=== PATIENT | male | born 1970 | race Caucasian/White ===

== ENCOUNTER 2020-06-10 08:03 | Outpatient (CLI) | payer BC ==
[2020-06-10] MEDS ORDERED: BARIUM SULFATE 135 ML SUSP.RECON (E-Z-HD) PO ONE (09:20)
== END 2020-06-10 20:39 | disposition home or self-care (01) ==
LOC: SRD 08:03
PROVIDERS: ATTEND Otolaryngology Plastic Surgery within the Head & Neck
DX: K21.9 Gastro-esophageal reflux disease without esophagitis (principal); R05 Cough
CPT/HCPCS: 74220-TC

== ENCOUNTER 2020-06-19 07:40 | Emergency (ER) | payer BC ==
[~2020-06-19] VITALS: Ht 175.3 cm; Wt 95.3 kg
[2020-06-19 07:43] VITALS: BP_SYST 148
[2020-06-19] MEDS ORDERED: MORPHINE 4 MG/ML INJ. SYRINGE IVP ONE (08:00)
[2020-06-19] MEDS ORDERED: NACL 0.9% 1,000 ML IV ONE (08:00)
[2020-06-19] MEDS ORDERED: ONDANSETRON HCL 4 MG/2 ML VIAL IVP ONE (08:00)
[2020-06-19 08:29] LABS: BASOPHILS % (AUTO) 0.6 % (0.0-2.0); EOSINOPHILS % (AUTO) 0.2 % (0.0-4.0); HEMOGLOBIN 15.4 g/dL (14.0-18.0); LYMPHOCYTES # (AUTO) 0.9 K/uL (1.0-5.5); LYMPHOCYTES % (AUTO) 11.6 % (20.5-51.5); MEAN CORPUSCULAR HEMOGLOBIN 29 pg (27-31); MEAN CORPUSCULAR HGB CONC 33 % (32-36); MEAN CORPUSCULAR VOLUME 86 fL (79.0-98.0); MONOCYTES # (AUTO) 0.5 K/uL (0.0-1.0); MONOCYTES % (AUTO) 5.9 % (1.7-9.3); NEUTROPHILS # (AUTO) 6.6 K/uL (1.8-7.7); NEUTROPHILS % (AUTO) 81.7 % (40.0-70.0); PLATELET COUNT (AUTO) 241 K/uL (130-430); RED BLOOD CELL COUNT(AUTO) 5.38 MIL/uL (4.2-6.2); RED CELL DISTRIBUTION WIDTH 13.8 % (9.0-15.0); WHITE BLOOD COUNT (AUTO) 8.1 K/uL (4.8-10.8)
[2020-06-19 08:45] LABS: CALCIUM 8.7 mg/dL (8.4-11.0); CREATININE 0.86 mg/dL (0.55-1.30); POTASSIUM 4.3 mmol/L (3.5-5.1)
[2020-06-19 08:47] LABS: BILIRUBIN,URINE 1+ (NEGATIVE); BLOOD, URINE NEGATIVE (NEGATIVE); CLARITY/URINE CLEAR (CLEAR); COLOR,URINE YELLOW (YELLOW); GLUCOSE,URINE TRACE (NEGATIVE); KETONES,URINE NEGATIVE (NEGATIVE); LEUKOCYTE ESTERASE ,URINE NEGATIVE (NEGATIVE); NITRITE, URINE NEGATIVE (NEGATIVE); PH,URINE 7.5 (5.0-8.0); PROTEIN URINE NEGATIVE (NEGATIVE)
[2020-06-19 11:01] VITALS: BP_SYST 144
== END 2020-06-19 11:00 | disposition home or self-care (01) ==
LOC: SED 07:40
DX: K80.20 Calculus of gallbladder without cholecystitis without obstruction (principal); R10.13 Epigastric pain; I10 Essential (primary) hypertension
CPT/HCPCS: 36415; 76700; 80053; 81003; 82150; 83690; 85025; 96361; 96374; 96375; 99284; J2270; J2405; J7030

== ENCOUNTER 2020-07-05 08:39 | Day surgery (SDC) | payer BC, SELFPAY ==
[~2020-07-05] VITALS: Ht 175.3 cm; Wt 93.0 kg
[~2020-07-05 08:39] MED LIST: CEFAZOLIN SOD 1 GM in D5W 50 ML IV ONE
[2020-07-05] MEDS ORDERED: SOD CL IV ONE (08:40)
[2020-07-05] MEDS ORDERED: ESMOLOL HCL IV ONE (08:40)
[2020-07-05] MEDS ORDERED: BREVIBLOC IV ONE (08:40)
[2020-07-05] MEDS ORDERED: MIDAZOLAM HCL 5 MG/5 ML VIAL IVP PRN (09:15)
[2020-07-05] MEDS ORDERED: MEPERIDINE HCL/PF 25 MG/ML DISP.SYRIN IVP PRN (09:15)
[2020-07-05] MEDS ORDERED: MORPHINE 4 MG/ML INJ. SYRINGE IVP PRN (09:15)
[2020-07-05] MEDS ORDERED: ONDANSETRON HCL 4 MG/2 ML VIAL IVP PRN (09:15)
[2020-07-05] MEDS ORDERED: METOCLOPRAMIDE HCL 10 MG/2 ML VIAL IVP PRN (09:15)
[2020-07-05] MEDS ORDERED: LR 1,000 ML IV SCH (09:15)
[2020-07-05] MEDS ORDERED: SEVOFLURANE 15 MIN GAS INH ONE (09:22)
[2020-07-05] MEDS ORDERED: LR 1,000 ML IV.SOLN IV ONE (09:22)
[2020-07-05] MEDS ORDERED: MIDAZOLAM HCL 5 MG/5 ML VIAL IVP ONE (09:22)
[2020-07-05] MEDS ORDERED: GLYCOPYRROLATE 0.2 MG/ML VIAL IJ ONE (09:22)
[2020-07-05] MEDS ORDERED: PROPOFOL 200MG/ 20ML VIAL (DIPRIVAN) IV ONE (09:22)
[2020-07-05] MEDS ORDERED: NS IRRIG SOLN 1000 ML IR ONE (09:22)
[2020-07-05] MEDS ORDERED: DEXAMETHASONE SOD PHOSPHATE 4 MG/ML VIAL IVP ONE (09:22)
[2020-07-05] MEDS ORDERED: BUPIVACAINE /EPINEPHRINE/PF 0.25% 30 ML VIAL INJ ONE (09:22)
[2020-07-05] MEDS ORDERED: IOPAMIDOL 50 ML VIAL IV ONE (09:22)
[2020-07-05] MEDS ORDERED: NEOSTIGMINE METHYLSULFATE 1 MG/ML, 10 ML VIAL IVP ONE (09:22)
[2020-07-05] MEDS ORDERED: NS 1000 ML IV.SOLN IV ONE (09:22)
[2020-07-05] MEDS ORDERED: fentaNYL CITRATE 250 MCG/5 ML AMP IV ONE (09:22)
[2020-07-05] MEDS ORDERED: SUCCINYLCHOLINE CHLORIDE 20 MG/ML(QUELICIN) IVP ONE (09:22)
[2020-07-05] MEDS ORDERED: ROCURONIUM BROMIDE 10 MG/ML (ZEMURON) IV ONE (09:22)
[2020-07-05] MEDS ORDERED: METOPROLOL TARTRATE 5 MG/5 ML VIAL IVP ONE (09:22)
[2020-07-05] MEDS ORDERED: HYDROcodone/ACETAMIN 5-325 MG TAB (NORCO/ VICODIN) PO PRN ×2 (11:00)
[2020-07-05] MEDS ORDERED: D5/0.45 NS 1,000 ML IV SCH (11:00)
[2020-07-05] MEDS ORDERED: HYDROmorphone 1 MG INJ. 1 MG/ML AMPUL IVP PRN (11:00)
[2020-07-05] MEDS: HYDROmorphone 1 MG INJ. 1 MG/ML AMPUL IVP PRN ×2 (11:20→11:40)
[2020-07-05 11:55] VITALS: BP_SYST 131
[2020-07-05] MEDS ORDERED: HYDROmorphone 1 MG INJ. 1 MG/ML AMPUL ONE (11:58)
== END 2020-07-05 13:32 | disposition still patient (30) ==
LOC: SDS 08:39 → SMU 08:41 → SDS 13:32
PROVIDERS: ATTEND Colon & Rectal Surgery
DX: K80.10 Calculus of gallbladder with chronic cholecystitis without obstruction (principal); K76.89 Other specified diseases of liver; I10 Essential (primary) hypertension; K21.9 Gastro-esophageal reflux disease without esophagitis; F41.9 Anxiety disorder, unspecified; Z79.899 Other long term (current) drug therapy; Z87.891 Personal history of nicotine dependence; Z20.828 Contact with and (suspected) exposure to other viral communicable diseases
CPT/HCPCS: 47379; 47563; 74300; 88304; 88307; 88313; C1727; C1758; J0330; J0690; J1100; J1170; J2250; J2704; J2710; J3010; J3490 ×3; J7030; J7060; J7120; Q9967; U0003; 76000